=== PATIENT | female | born 2000 | race Caucasian/White ===

== ENCOUNTER 2024-05-01 10:45 | Outpatient (RCR) | payer MEDICARE, SELFPAY ==
[2024-04-29 09:50] VITALS: BMI 45.3
[2024-04-29 09:51] VITALS: BP 110/68; PULSE 88; TEMP 36.8
--- NOTE | 2024-04-29 14:42 | PC.ADMIT ---
Patient is a 24 year old single female who was referred to [facility] by her psychiatric prescriber. According to records patient has been on many medication trials and most recently was on Fluvoxamine which increased depression and SI thus was discontinued as a result. Patient also lost her therapist and has no day structure. Patient has a dx of MDD, Social phobia, ADHD, OCD, and autism unspecified. Patient lives with parents and sister. Parents are supportive. Patient is alert and oriented x4. She is calm and cooperative. She presented with depressed mood and anxious affect. Currently denied SI, no HI. She was given a copy of her safety plan if needed. Patient reports having passive thoughts with in the past month were she does not want to wake up. Denied any plan or intent to kill herself. She talked about struggling to get out of bed and has been isolating. Patient is feeling stuck and wants to feel better. Patient reports smoking one marijuana joint daily. Stated she has cut down from vaping marijuana throughout the day. Educated patient about marijuana's effects on mental and physical health.
--- NOTE | 2024-05-01 12:03 | PC.NURSE ---
Tia came to group towards the end of group 2 and sat down at the table in the back of the group. She started moving her right hand back and fourth and making a consistent humming sound. I escorted Tia out of group without incident. Tia was crying and stated she wanted to call her mother and asked if we had a phone she could use. I let Tia call her mother in group room C and asked [facility] staff Ebonie to ask Amy to f/u with patient as I went back to group. Amy met with patient and patients mother. I called patients mother and asked her if she could bring Tia to get evaluated by crisis or have crisis come to the home. Patient's mother stated she did that already 2-3 weeks ago and they told her to come to [facility]. She stated she did not want to do that again and that Tia is fine and calm now. She stated Tia sometimes has a hard time being around a lot of people and did not feel comfortable at [facility]. She stated that Tia has outbursts every 7-8 months.
--- NOTE | 2024-05-01 16:13 | HO.PHP ---
[facility] Admin, Ebonie, informed the clinician that the nurse would like for the clinician to check in with Tia because she was hitting her head in her group. Ebonie mentioned she is currently in group room C. PHP staff member went into Group room C where Tia was observed to be dialing a number on the phone in that room. PHP staff member explored with Tia what was occurring. Tia mentioned that she needs to contact her mother. PHP staff member explored with Tia why she is needing to reach her mother at this time. Tia refused to inform the clinician and when her mother didn't answer, Tia took the whole phone unit and threw it. Tia then proceeded to throw herself on the floor and was screaming, crying, and kicking her feet. PHP staff member waited till Tia was calm and attempted to explore what was creating the dysregulation. Tia stated that she is spiraling and needs to speak to her mother. PHP staff member was receptive but continued to assess what is causing her to spiral. Tia refused to answer. PHP staff member was able to get Tia's mother on the phone, in which Tia was screaming at her mother to come pick her up. Tia was able to regulate. PHP staff member spoke with the mother and explored if this is Tia's baseline level and if she feels safe with having her go home with her right now. Tia's mother stated that this behavior happens and she noted that Tia has not taken her medication in a couple days. PHP staff member suggested having her evaluated but Tia's mother didn't feel this was necessary since this behavior happens often. PHP staff member engaged in conversation with Tia until her mother got to the program.PHP staff member engaged in conversation with Tia, Tia stated she doesn't even recall what occurred. PHP staff member assessed with Tia if she feels this program is right for her and if it is too triggering. Tia feels as though this program is too difficult for her at this time. PHP staff member encouraged her to come to program tomorrow so she can be seen by the med provider here, to help with any medication changes. Tia stated she doesn't feel she needs medications changes and that they change her medications every three months. PHP staff member asked if she is experiencing any suicidal thoughts. Tia stated she is not experiencing any SI, plan or intent. Tia did mention that she hears voices and that scares her because her aunt is schizophrenic and she doesn't want to be schizophrenic. When exploring what the voices were, Tia had a difficult time with expressing what she is hearing and then began talking about her attachment issues with her father. Tia stated since she didn't have a close relationship with her father, she has been seeking validation from her idol who is a comic in [place]. Tia mentioned that she was utilizing AI when she was unable to talk with her idol and noted that was not helpful for her because she was struggling to identify what was real and not. [facility] staff member and Tia talked around not engaging in communication with AI. Tia talked about the guilt she is feeling in her actions now that her father is in the hospital. PHP staff member validated Tia's feelings and engaged in actively listening. Tia was able to regulate and once her mother came to the program, the mother mentioned that this behavior is normal and she feels safe with her returning home. [facility] staff member attempted to review a safety plan with Tia and her mother but Tia's mother asked if we could do this over a phone conversation. [facility] staff member disclosed that she could reach out to her and asked if she was going to be with Tia the remainder of the night to make sure she will be safe if she becomes dysregulated again. The mother agreed to be with Tia the remainder of the day. Due to Tia regulating and expressing no safety concerns, she had left to go home with her mother and is going to try program tomorrow.
--- NOTE | 2024-05-01 16:31 | HO.IOP ---
[facility] staff member attempted to reach out to Tia but it was sent straight to voicemail. [facility] staff member then reached out to Tia's mother, in which a voicemail was left exploring how Tia was doing. [facility] staff member encouraged the mother to follow up with her. [facility] staff member is awaiting a phone call back.
--- NOTE | 2024-05-02 09:18 | PC.NURSE ---
Tia did not come to the program this morning. I called Tia and she stated she was not coming in today. She is unsure if she is going to come back to the program. I asked how she was doing and she stated she is doing ok. Patient denied any safety issues, denied any SI. I told her to keep her phone on her and Amy would be calling her to check in regarding possible d/c from the program.
--- NOTE | 2024-05-02 15:00 | HO.PHP ---
Client's case has been opened and reviewed in team.
--- NOTE | 2024-05-02 22:34 | PM.EVENT ---
Event Note Date of Service: 05/02/24 Event Note: Patient called out from program today although was scheduled to be seen. She also called out Monday and was unable to stay to meet with this publicity writer on Monday. I called to reach out to patient for check in and introduction. She was invited to return call today if she wanted to connect, otherwise will plan to see her tomorrow when she returns to program. Time Spent With Patient Time: Total time managing care of this patient today __5__ minutes.
--- NOTE | 2024-05-03 09:29 | PC.NURSE ---
Tia did not show up to the program this morning. I left message for Tia to call me back. Awaiting phone call.
--- NOTE | 2024-05-03 11:35 | HO.PHP ---
A referral was placed to [facility] for OP therapy for Tia. PHP staff member is awaiting on a call with those appointment dates and times.
--- NOTE | 2024-05-03 11:35 | HO.PHP ---
[facility] staff member reached out to Tia due to her not showing to the program. Tia's phone went right to , therefore, PHP staff member reached out to Tia's mother and left a VM. [facility] nurse Hannah also attempted outreach attempts to locate Tia. PHP staff member reached out to the mother around 8:50 AM to see if she would answer prior to initiating a wellness check. Tia's mother, Monae answered the phone. [facility] staff member informed the mother that we are reaching out to see how Tia is doing since she didn't show up to the program. Tia's mother said she is doing good. [facility] staff disclosed that she would like to gather information for DC since Tia has missed three days of the program. The mother was receptive and noted that Tia hasn't wanted to return since she was last there on Monday. [facility] staff member disclosed that she had placed a referral for OP therapy through [facility] in [place] and she should be receiving a call with those appointment dates and times. [facility] staff member attempted to gather the appointment date for her med provider but she disclosed she does not have that information on her and will have to call me back. When I explored if Tia was present to discuss the remainder of the discharge information, she was unable to hear me and the phone line disconnected. [facility] staff member called back with no success. About 10 to 15 minutes later, [facility] staff member received a call from Tan mother stating she found the appointment but she provided the wrong appointment date and time due to that appointment already occurring. Tan mother voiced that she has it written on a card and will call back later. [facility] staff member is awaiting for that information to complete the discharge information.
== END 2024-05-01 23:59 | disposition home or self-care (01) ==
LOC: HO.PHPA 10:45
PROVIDERS: Visit Provider Psychiatry & Neurology Psychiatry
DX: F33.2 Major depressive disorder, recurrent severe without psychotic features (principal); F90.9 Attention-deficit hyperactivity disorder, unspecified type; F42.9 Obsessive-compulsive disorder, unspecified; F84.9 Pervasive developmental disorder, unspecified
CPT/HCPCS: 90791; 90853